=== PATIENT | male | born 1975 | race Caucasian/White ===

== ENCOUNTER 2017-04-19 16:59 | Emergency (ER) | payer OTHER ==
[2017-04-19 17:06] VITALS: BMI 28.3
[2017-04-19 17:07] VITALS: TEMP 97.9
--- NOTE | 2017-04-19 17:37 | ED PDOC ---
Arrival/HPI <Dar Montelongo - Last Filed: 04/19/17 18:51> - General Historian: Patient - History of Present Illness Time/Duration: Other (<12 hours) Symptom Onset: Gradual Symptom Course: Improving Quality: Throbbing Severity Level: 5 Activities at Onset: Rest Context: Home <Bam Miranda - Last Filed: 04/20/17 07:03> - General Chief Complaint: Dizziness/Lightheaded Time Seen by Provider: 04/19/17 17:36 - History of Present Illness Narrative History of Present Illness (Text): 41 M with PMH of HLD and GERD presents to ED for complaint of headache and dizziness. Patient states that his symptoms started this morning while at home before work. Patient states that he noticed a headache while sitting down and when he went to stand up he was dizzy. Patient states that his symptoms have slightly improved since this morning but decided to come in. He reports that " he feels like he is in a dream." He didn't try to take anything for the headache. Nothing he noticed specifically exacerbates or alleviates his symptoms. Denies fever/chills, cp, palpitations, sob, vertigo, syncope, loss of vision, photophobia, abd pain, n/v/d, numbness/tingling, weakness, motor/ sensory deficits. (Bam Miranda) Past Medical History - Provider Review Nursing Documentation Reviewed: Yes - Travel History Have you recently traveled outside [place] w/in the past 3 mons?: No - Infectious Disease Hx of Infectious Diseases: None - Tetanus Immunization Tetanus Immunization: Unknown - Musculoskeletal/Rheumatological Hx Falls: No - Gastrointestinal Hx Gastroesophageal Reflux: Yes - Psychiatric Hx Depression: No Hx Emotional Abuse: No Hx Physical Abuse: No Hx Substance Use: No - Anesthesia Hx Anesthesia: No - Suicidal Assessment Feels Threatened In Home Enviroment: No <Bam Miranda - Last Filed: 04/20/17 07:03> Family/Social History - Physician Review Nursing Documentation Reviewed: Yes Family/Social History: Unknown Family HX Smoking Status: Heavy Smoker > 10 Cigarettes Daily Hx Alcohol Use: Yes Frequency of alcohol use: Socially Hx Substance Use: No Hx Substance Use Treatment: No <Bam Miranda - Last Filed: 04/20/17 07:03> Allergies/Home Meds <Dar Montelongo - Last Filed: 04/19/17 18:51> <Bam Miranda - Last Filed: 04/20/17 07:03> Allergies/Adverse Reactions: Allergies No Known Allergies Allergy (Verified 02/07/12 20:14) Home Medications: Home Meds Medication Instructions Recorded Confirmed Omeprazole [Omeprazole] 1 tab PO DAILY 04/19/17 04/19/17 Rosuvastatin Calcium [Crestor] 1 tab PO HS 04/19/17 04/19/17 Review of Systems - Review of Systems Constitutional: absent: Fatigue, Weight Change, Fevers, Night Sweats Eyes: absent: Photophobia, Eye Pain ENT: absent: Hearing Changes, TMJ Pain, Sore Throat, Rhinorrhea, Epistaxis Respiratory: absent: SOB, Cough, Wheezing Cardiovascular: absent: Chest Pain, Palpitations, Syncope Gastrointestinal: absent: Abdominal Pain, Constipation, Diarrhea, Nausea, Vomiting Genitourinary Male: absent: Dysuria, Frequency, Hematuria Musculoskeletal: absent: Arthralgias, Back Pain, Neck Pain Skin: absent: Rash, Skin Lesions, Laceration Neurological: Headache, Dizziness. absent: Focal Weakness, Gait Changes, Speech Changes, Facial Droop, Disequilibrium, Seizure Endocrine: absent: Diaphoresis, Polyuria, Polydipsia Hemo/Lymphatic: absent: Adenopathy, Easy Bleeding, Easy Bruising Psychiatric: absent: Anxiety, Depression, Suicidal Ideation <Bam Miranda - Last Filed: 04/20/17 07:03> Physical Exam Vital Signs Reviewed: Yes Temperature: Afebrile Blood Pressure: Normal Pulse: Regular Respiratory Rate: Normal Appearance: Positive for: Well-Appearing, Non-Toxic, Comfortable Pain Distress: Mild Mental Status: Positive for: Alert and Oriented X 3 Finger Stick Blood Glucose: 85 - Systems Exam Head: Present: Atraumatic, Normocephalic Pupils: Present: PERRL Extroacular Muscles: Present: EOMI Conjunctiva: Present: Normal Ears: Present: NORMAL TM Mouth: Present: Moist Mucous Membranes Respiratory/Chest: Present: Clear to Auscultation, Good Air Exchange Cardiovascular: Present: Regular Rate and Rhythm, Normal S1, S2, Peripheal Pulses Present Abdomen: Present: Normal Bowel Sounds. No: Tenderness, Distention, Peritoneal Signs, Rebound, Guarding Upper Extremity: Present: Normal ROM, NORMAL PULSES, Neurovascularly Intact, Capillary Refill < 2s Lower Extremity: Present: NORMAL PULSES, Normal ROM, Neurovascularly Intact, Capillary Refill < 2 s Neurological: Present: GCS=15, CN II-XII Intact, Speech Normal, Motor Func Grossly Intact, Normal Sensory Function, Normal Cerebellar Funct, Other (no difficulty ambulating) Skin: Present: Warm, Dry, Normal Color Lymphatic: No: Cervical Adenopathy, Axillary Adenopathy, Inguinal Adenopathy Psychiatric: Present: Alert, Oriented x 3, Normal Concentration, Normal Affect, Normal Mood <Bam Miranda - Last Filed: 04/20/17 07:03> Vital Signs Temp Pulse Resp BP Pulse Ox 04/19/17 21:00 68 16 130/79 96 04/19/17 18:54 72 16 152/99 H 98 04/19/17 17:06 97.9 F 72 18 142/88 99 Medical Decision Making <Dar Montelongo - Last Filed: 04/19/17 18:51> <Bam Miranda - Last Filed: 04/20/17 07:03> ED Course and Treatment: 04/19/17 19:00 Patient seen and examined with resident Came up with treatment and disposition plan with resident 41yo male with frontal CRANE, at times radiates posteriorly, states this was not sudden onset and not the worst CRANE of his life. Accomp by dizziness. No focal neurological deficits on examination. Meds ordered. CT pending patient signed out to Dr. Jennings in stable condition, pending CT, reeval, dispo (Dar Montelongo) EKG and Head CT ordered. IV fluids, benadryl, reglan given. (Bam Mirnada) - RAD Interpretation Radiology Orders: 04/19/17 17:54 HEAD W/O CONTRAST [CT] Stat - Medication Orders Current Medication Orders: Discontinued Medications Acetaminophen (Tylenol 325mg Tab) 975 mg PO STAT STA Stop: 04/19/17 18:16 Last Admin: 04/19/17 18:33 Dose: 975 mg Diphenhydramine HCl (Benadryl) 25 mg IVP STAT STA Stop: 04/19/17 18:16 Last Admin: 04/19/17 18:35 Dose: 25 mg Sodium Chloride (Sodium Chloride 0.9%) 1,000 mls @ 999 mls/hr IV .Q1H1M STA Stop: 04/19/17 18:59 Last Admin: 04/19/17 18:21 Dose: 999 mls/hr Metoclopramide HCl (Reglan) 10 mg IVP STAT STA Stop: 04/19/17 18:16 Last Admin: 04/19/17 18:35 Dose: 10 mg - PA / CHEMIST WATER PURIFICATION / Resident Statement WILLAM has reviewed & agrees with the documentation as recorded. WILLAM has examined the patient and agrees with the treatment plan. <Bam Miranda - Last Filed: 04/20/17 07:03> Disposition/Present on Arrival - Present on Arrival Any Indicators Present on Arrival: No - Disposition Disposition Time: 19:00 <Dar Montelongo - Last Filed: 04/19/17 18:51> - Present on Arrival History of DVT/PE: No History of Uncontrolled Diabetes: No Urinary Catheter: No History of Decub. Ulcer: No History Surgical Site Infection Following: None - Disposition Have Diagnosis and Disposition been Completed?: Yes Patient Plan: Discharge <Bam Miranda - Last Filed: 04/20/17 07:03> - Disposition Diagnosis: Dizziness Disposition: HOME/ ROUTINE Condition: STABLE Discharge Instructions (ExitCare): Dizziness (ED) Referrals: Tanvir Berkowitz MD [Primary Care Provider] - Follow up with primary
[2017-04-19] MEDS ORDERED: Sodium Chloride 0.9% 1,000 ML IV STA (17:59)
[2017-04-19] MEDS ORDERED: DiphenhydrAMINE 50 mg/ml Inj IVP STA (18:15)
[2017-04-19 18:55] VITALS: RESP 16
--- NOTE | 2017-04-19 20:36 | CT ---
EXAM: CT Head Without Intravenous Contrast CLINICAL HISTORY: 41 years old, male; Signs and symptoms; Dizziness; Additional info: Headache, dizziness TECHNIQUE: Axial computed tomography images of the head/brain without intravenous contrast. This CT exam was performed using one or more of the following dose reduction techniques: automated exposure control, adjustment of the mA and/or kV according to patient size, and/or use of iterative reconstruction technique. EXAM DATE/TIME: 04/19/2017 5:54 PM COMPARISON: There are no prior studies for comparison. FINDINGS: Brain: Ventricles are normal in size and configuration. There is no midline shift. There are no intra-axial or extra-axial mass lesions or areas of hemorrhage. There are no abnormal fluid collections. Jamse-white differentiation is maintained. Ventricles: See above. Bones: Cranial vault is intact. Soft tissues: unremarkable Sinuses: There is no acute sinusitis. Ears and mastoids: Middle ears and mastoids are unremarkable Orbits: Orbital contents are unremarkable. IMPRESSION: No acute intracranial abnormality
--- NOTE | 2017-04-19 20:46 | CARD ---
APPROVED REPORT EKG Measurement Heart [id number] <Conclusion> Normal sinus rhythm Nonspecific T wave abnormality Abnormal ECG
[2017-04-19 21:01] VITALS: BP 130/79; PULSE 68; O2SAT 96
== END 2017-04-19 21:13 | disposition home or self-care (01) ==
LOC: ED 16:59
DX: R42 Dizziness and giddiness (principal)
CPT/HCPCS: 70450; 93005; 96374; 96375; 99285; J1200; J2765; J7040